=== PATIENT | female | born 1965 | race Caucasian/White ===

== ENCOUNTER → 2018-04-29 | Outpatient (CLI) | payer OTHER ==
--- NOTE | 2018-04-29 16:47 | Diagnostic Imaging Report ---
INDICATION: Shoulder pain. COMPARISON: None FINDINGS: Single axillary view of the left shoulder was obtained and demonstrates normal alignment of the glenoid and humeral head. No acute osseous abnormality is seen on this single view. No unexpected radiopaque foreign bodies are identified. IMPRESSION: 1. Single axillary view demonstrates normal glenohumeral alignment. Dictated by: Dictated on workstation # [id number]
== END ==
LOC: RAD 11:46
PROVIDERS: ATTEND Orthopaedic Surgery Sports Medicine
DX: M25.512 Pain in left shoulder (principal)
CPT/HCPCS: 73020

== ENCOUNTER → 2018-05-18 | Outpatient (CLI) | payer OTHER ==
--- NOTE | 2018-05-18 13:18 | Diagnostic Imaging Report ---
INDICATION: Postmenopausal screening. COMPARISON: None. FINDINGS: AP Spine L2-L4: [BMD (g/cm2): .936] [T-Score: -2.2] [Z-Score: -0.8] [BMD Previous: na] [BMD % Change: na] LT Hip Neck: [BMD (g/cm2): 0.755] [T-Score: -2.0] [Z-Score: -0.6] LT Hip Total: [BMD (g/cm2):0.761] [T-Score:-2.0] [Z-Score: -0.9] [BMD Previous: na] [BMD % Change: na] RT Hip Neck: [BMD (g/cm2):0.870] [T-Score:-1.2] [Z-Score:0.2] RT Hip Total: [BMD (g/cm2):0.833] [T-score:-1.4] [Z-Score:-0.3] [BMD Previous:na] [BMD % Change:na] *Indicates significant change from prior examination based on 95% confidence level. World Health Organization criteria for BMD interpretation classify patients as Normal (T-score at or above -1.0), Osteopenic (T-score between -1.0 and -2.5) or Osteoporotic (T-score at or below -2.5). LIMITATIONS AND MODIFICATION: None. FRACTURE RISK (FRAX SCORE): The ten year probability of (%): Major Osteoporotic Fracture: [7.0] Hip Fracture: [1.0] IMPRESSION: 1. Osteopenia (Low bone mass). 2. Baseline examination. 3. See below National Osteoporosis Foundation guidelines on when to potentially initiate pharmacologic therapy. Based on the National Osteoporosis Foundation Guidelines, pharmacologic treatment should be initiated in any of the following, unless clinical conditions suggest otherwise: * Any patient with prior fragility fracture of the hip or vertebrae. A spine fracture indicates 5X risk for subsequent spine fracture and 2X risk for subsequent hip fracture. * Osteoporosis (T-score <-2.5). * Postmenopausal women and men age 50 and older with low bone mass/osteopenia (T-score between -1.0 and -2.5) by DXA and 10-year major osteoporotic fracture greater than 20% or a 10-year probability of hip fracture greater than 3%. These fracture risks are supplied above in the FRAX score, if applicable. * Clinician judgment and/or patient preferences may indicate treatment for people with 10-year fracture probabilities above or below these levels. Dictated by: Dictated on workstation # [id number]
== END ==
LOC: RAD 08:07
PROVIDERS: ATTEND Family Medicine
DX: Z13.820 Encounter for screening for osteoporosis (principal); M85.89 Other specified disorders of bone density and structure, multiple sites; Z78.0 Asymptomatic menopausal state
CPT/HCPCS: 77080

== ENCOUNTER → 2019-01-03 | Outpatient (CLI) | payer SELFPAY ==
--- NOTE | 2019-01-03 15:09 | Diagnostic Imaging Report ---
PROCEDURE: US Non-ob pelvis comp/trans. TECHNIQUE: Multiple realtime grayscale images were obtained of the pelvis in various projections endovaginally. Transabdominal imaging was also performed. INDICATION: Adnexal fullness and pelvic pain. FINDINGS: Uterus measures 5.2 x 3.4 x 2.5 cm. Endometrium is 3 mm in thickness. No myometrial mass is identified. Left ovary cannot be visualized due to overlying bowel gas. Right ovary measures 2.0 x 1.6 x 0.9 cm. There is blood flow to the right ovary. No mass or free fluid is seen. IMPRESSION: Nonvisualized left ovary. The study is otherwise unremarkable. Dictated by: Dictated on workstation # [id number]
== END ==
LOC: RAD 12:41
PROVIDERS: ATTEND Obstetrics & Gynecology
DX: N94.89 Other specified conditions associated with female genital organs and menstrual cycle (principal); R10.2 Pelvic and perineal pain
CPT/HCPCS: 76830; 76856

== ENCOUNTER 2020-11-04 13:21 | Emergency (ER) | payer OTHER ==
[~2020-11-04] VITALS: Ht 160 cm; Wt 46.0 kg
--- NOTE | 2020-11-04 13:50 | ED Back Pain ---
General Chief Complaint: Back Problems Stated Complaint: LOW BACK PAIN,PREV LIGHTHEADED/NAUSEA Nursing Triage Note: PT CO OF BACK PAIN, TO ROOM 3 PER W/C PT STATES WAS MOVING BED AND FELT POP IN LOWER BACK RATES PAIN 12/02 Source of Information: Patient History of Present Illness Date Seen by Provider: Nov 04, 2020 Time Seen by Provider: 13:35 Initial Comments PT ARRIVES VIA POV FROM HOME, WHEELCHAIR ON ARRIVAL PT STATES ABOUT AN HOUR AGO, SHE WAS AT HER MOM'S HOUSE AND WAS MOVING A BED, AND FELT SOMETHING "POP" IN HER LOWER BACK AND HAD SUDDEN SEVERE PAIN IN LOW BACK NO RADIATION OF PAIN NO PARESTHESIAS OR MOTOR DEFICITS NO LOSS OF BOWEL OR BLADDER FUNCTION--URINATED NORMALLY JUST PRIOR TO ARRIVAL NO HISTORY OF BACK PROBLEMS HAS NOT TAKEN ANYTHING FOR PAIN STATES "I CAN'T TAKE ANYTHING" "THEY CAN'T EVEN TREAT MY FIBROMYALGIA BECAUSE I CAN'T TAKE ANYTHING" --GIVES A LONG LIST OF MEDICATIONS SHE CANNOT TAKE DUE TO VARIOUS ADVERSE REACTIONS/INTOLERANCES ALSO STATES SHE HAS OSTEOPOROSIS Other Comments PCP: DR. RENE Allergies and Home Medications Patient Home Medication List Home Medication List Reviewed: Yes Review of Systems Constitutional: no symptoms reported Gastrointestinal: no symptoms reported Genitourinary: no symptoms reported Control/STD Prophylaxis: Other (MENOPAUSAL) Musculoskeletal: see HPI, back pain Skin: no symptoms reported Psychiatric/Neurological: No Symptoms Reported Past Lckbgic-Sgxzzx-Croiwj Hx Patient Social History Tobacco Use?: Yes Tobacco type used: Cigarettes Smoking Status: Former Smoker (SMOKED X 7 YEARS, QUIT MANY YEARS AGO) Substance use?: No Alcohol Use?: No Pt feels they are or have been: No Immunizations Up To Date First/Initial COVID19 Vaccinat: J AND J 05/19/20 Seasonal Allergies Seasonal Allergies: Yes Past Medical History Surgeries: Yes Tubal Ligation Respiratory: No Cardiac: No Neurological: No CONVEYOR MONITOR History: Menopausal Genitourinary: No Gastrointestinal: Yes Diverticulosis Musculoskeletal: Yes Osteoporosis, Fibromyalgia Endocrine: No HEENT: No Cancer: No Psychosocial: No Integumentary: No Blood Disorders: No Physical Exam Vital Signs Vital Signs - First Documented 11/04/20 13:30 Temp 36.0 Pulse 58 Resp 18 B/P (MAP) 132/75 (94) Pulse Ox 100 Capillary Refill : Less Than 3 Seconds Height, Weight, BMI Height: '" Weight: lbs. oz. kg; 17.00 BMI Method: General Appearance: No Apparent Distress, WD/WN, Anxious, Thin Neck: Normal Inspection Cardiovascular: Regular Rate, Rhythm, No Edema, No JVD, No Murmur, Normal Peripheral Pulses Respiratory: Normal Breath Sounds Peripheral Pulses: 2+ Dorsalis Pedis (R), 2+ Left Dors-Pedis (L) Gastrointestinal: Non Tender, Soft Back: No CVA Tenderness, Other (DIFFUSE LUMBAR TENDERNESS--EXAGGERATED PAIN RESPONSE, C/O SEVERE PAIN WITH ANY MOVEMENT. DTR'S INTACT. MOTOR/SENSORY/VASCULAR INTACT. ) Extremity: Normal Capillary Refill, Normal Inspection, Normal Range of Motion, Non Tender, No Calf Tenderness, No Pedal Edema Neurologic/Psychiatric: Alert, Oriented x3, No Motor/Sensory Deficits, wound care nurse II- XII Norm as Tested Skin: Normal Color, Warm/Dry; No Rash Progress/Results/Core Measures Results/Orders My Orders Orders - BETH MITCHELL DO Ct Lumbar Spine Wo (11/04/20 13:42) Vital Signs/I&O 11/04/20 13:30 Temp 36.0 Pulse 58 Resp 18 B/P (MAP) 132/75 (94) Pulse Ox 100 Blood Pressure Mean: 94 Progress Progress Note : Progress Note OFFERED A MULTITUDE PAIN MEDICATIONS, MUSCLE RELAXANTS, STEROIDS--PT REPEATEDLY STATES "I CAN'T TAKE ANYTHING" --GIVES VAGUE REASONS WHY SHE CAN'T TAKE THEM, STATING "I CAN'T TAKE THAT"--TO LITERALLY EVERY MEDICATION OF MULTIPLE DRUG CLASSES THAT I SUGGESTED, WILL OCCASIONALLY STATE "IT MAKES ME SICK", OR STATES TO A FEW "I SWELL" SHE REPEATS THAT THE ONLY MEDICATIONS SHE CAN TAKE ARE OVER THE COUNTER MEDICATIONS PT LATER STATES SHE DOES TAKE 1 ADVIL TWICE A DAY--ADVISED HER AT THIS TIME, TO HOLD NSAIDS THEY CAN SLOW HEALING OF FRACTURES DISCUSSED THE POSSIBILITY OF KYPHOPLASTY FOR PAIN MANAGEMENT/RASTAFARIAN OF VERTEBRAL HEIGHT, ETC. AND THE IMPORTANCE OF FOLLOW UP WITH ORTHOPEDIC SURGEON. 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 ALSO DISCUSSED WITH HER THAT SHE MAY BE A CANDIDATE FOR MEDICATIONS TO TREAT OSTEOPOROSIS--TO WHICH PT STATES "I CAN'T TAKE ANY OF THEM BECAUSE I HAVE DIVERTICULITIS" Diagnostic Imaging Comments CT LUMBAR SPINE--PER RADIOLOGIST REPORT AT 1407 Discussion: There is likely an acute endplate fracture along the superior aspect of the L5 vertebral body. No retropulsion. This could be confirmed with noncontrast MRI and subsequently treated with kyphoplasty as clinically indicated. Mild degenerative disc disease is noted. Mild facet arthropathy. No severe neural foraminal narrowing. Small disc bulges are noted throughout. The paraspinal soft tissues are unremarkable. Sacroiliac joints are unremarkable. Impression: 1. Acute appearing L5 mild compression fracture. Reviewed: Reviewed by Me Departure Impression Primary Impression: ACUTE L5 COMPRESSION FRACTURE Disposition: HOME, SELF-CARE Condition: Stable Departure-Patient Inst. Decision time for Depature: 14:07 Referrals: BETH RENE MD (PCP/Family) Primary Care Physician NIA FORD MD, MICHAEL P MD Patient Instructions: Vertebral Compression Fracture (DC) Add. Discharge Instructions: ALTERNATE ICE AND HEAT TO AREA AT 20 MINUTE INTERVALS TYLENOL NEEDED FOR PAIN OVER THE COUNTER LIDOCAINE PATCH DAILY FOR PAIN FOLLOW UP WITH DR. YEBOAH OR DR. FORD THIS WEEK FOR FURTHER CARE All discharge instructions reviewed with patient and/or family. Voiced understanding. BETH MITCHELL DO Nov 04, 2020 13:50
--- NOTE | 2020-11-04 14:03 | Diagnostic Imaging Report ---
Procedure: CT lumbar spine without contrast. Technique: Multiple contiguous axial images were obtained through the lumbar spine without the use of intravenous contrast. Sagittal and coronal reformations were then performed. Auto Exposure Controls were utilized during the CT exam to meet ALARA standards for radiation dose reduction. Indication: Low back lifting injury with pain. Comparison: None. Discussion: There is likely an acute endplate fracture along the superior aspect of the L5 vertebral body. No retropulsion. This could be confirmed with noncontrast MRI and subsequently treated with kyphoplasty as clinically indicated. Mild degenerative disc disease is noted. Mild facet arthropathy. No severe neural foraminal narrowing. Small disc bulges are noted throughout. The paraspinal soft tissues are unremarkable. Sacroiliac joints are unremarkable. Impression: 1. Acute appearing L5 mild compression fracture. Dictated by: Dictated on workstation # [id number]
[2020-11-04 14:34] VITALS: BP 132/75
== END 2020-11-04 14:34 | disposition home or self-care (01) ==
LOC: EDUNIT# 13:21 → ER 13:24
DX: S32.050A Wedge compression fracture of fifth lumbar vertebra, initial encounter for closed fracture (principal); Z87.891 Personal history of nicotine dependence; X50.0XXA Overexertion from strenuous movement or load, initial encounter
CPT/HCPCS: 72131

== ENCOUNTER → 2021-01-09 | Outpatient (CLI) | payer OTHER ==
[~2021-01-09] MED LIST: GADOTERATE 0.5 MMOL/ML (CLARISCAN) 15 ML VIAL IV ONE
--- NOTE | 2021-01-09 16:54 | Diagnostic Imaging Report ---
INDICATION: Patient with neck pain with numbness to both arms. EXAM: MRI of the cervical spine performed without IV contrast. Sequences include sagittal T2, sagittal T1, sagittal T2 fat-sat, axial T2, and axial T1. COMPARISON: None. FINDINGS: There is no acute cervical spine fracture or dislocation. There is no marrow edema. Limited visualization of the posterior fossa is unremarkable. Cervical spinal cord has normal cord caliber with no abnormal signal. There is no significant paraspinal soft tissue abnormality. C1-C2: There is no significant central canal narrowing. C2-C3: There is a very subtle posterior disk bulge. Otherwise, this level is unremarkable. C4-C5: There is mild bilateral facet arthropathy. There are small focal annular tears anteriorly and posteriorly with no significant disk bulge. There is mild bilateral facet arthropathy. There is no significant central spinal canal or neural foramen narrowing. C5-C6: There is minimal apical ligamentum flavum buckling. There is moderate right facet arthropathy and mild left facet arthropathy. There is mild central canal narrowing. There is no significant neural foramen narrowing. C6-C7: There is mild right facet arthropathy. There is no significant disk bulge. There is no significant central spinal canal or neural foramen narrowing. C7-T1: Unremarkable. IMPRESSION: There is mild cervical spine degenerative disk disease with no significant central canal or neural foramen narrowing. Dictated by: Dictated on workstation # [id number]
--- NOTE | 2021-01-09 17:07 | Diagnostic Imaging Report ---
PROCEDURE: MRI lumbar spine with and without contrast. TECHNIQUE: Multiplanar, multisequence MRI of the lumbar spine was performed with and without contrast. INDICATION: Back pain. L5 compression fracture. COMPARISON: 11/04/2020. FINDINGS: 5 lumbar type vertebral bodies are visualized with the last well-formed disc space designated L5-S1. Subacute to chronic compression fracture is seen in the superior endplate of L5 with stable height loss of approximately 25%. There is fragmentation of the anterior superior aspect of the L5 vertebral body which is similar in appearance to the prior exam. No acute fracture or dislocation is seen in the lumbar spine. Alignment is anatomic. No suspicious focal osseous lesions are seen. No abnormal enhancement is seen within the lumbar spine. The conus terminates at the L1 level. No masses are seen associated with the conus or nerve roots of the cauda equina. No epidural collections are identified. Multilevel degenerative changes are seen in the lumbar spine with disc bulges, facet hypertrophy, and buckling of the ligamentum flavum. T12-L1: No significant spinal canal or foraminal stenosis. L1-L2: No significant spinal canal or foraminal stenosis. L2-L3: No significant spinal canal or foraminal stenosis. L3-L4: No significant spinal canal or foraminal stenosis. L4-L5: Broad-based disc bulge, facet hypertrophy, and buckling of the ligamentum flavum results in mild spinal canal narrowing with mild bilateral foraminal narrowing. L5-S1: Facet hypertrophy and buckling of the ligamentum flavum results in no significant spinal canal narrowing and no significant foraminal narrowing. Paravertebral soft tissues are unremarkable. IMPRESSION: 1. Subacute to chronic compression fracture in the superior endplate of L5. There is stable height loss. No bony retropulsion. 2. No acute fracture or dislocation in the lumbar spine. No abnormal enhancement. 3. Multilevel degenerative changes in the lumbar spine, greatest at L4-L5. Dictated by: Dictated on workstation # [id number]
== END ==
LOC: RAD 14:00
PROVIDERS: ATTEND Pediatrics
DX: S32.050D Wedge compression fracture of fifth lumbar vertebra, subsequent encounter for fracture with routine healing (principal); M47.816 Spondylosis without myelopathy or radiculopathy, lumbar region; M50.30 Other cervical disc degeneration, unspecified cervical region; X58.XXXD Exposure to other specified factors, subsequent encounter
CPT/HCPCS: 72156; 72158

== ENCOUNTER → 2021-09-25 | Outpatient (CLI) | payer OTHER ==
[~2021-09-25] MED LIST changes: +CATHETER FLUSH 10 ML SYR IV PRN; -GADOTERATE 0.5 MMOL/ML (CLARISCAN) 15 ML VIAL IV ONE; +HOLD METFORMIN - RECEIVED CONTRAST 20 ML VIAL IV SCH; +IOHEXOL 350 MG/ML 100 ML (OMNIPAQUE 350) VIAL IV ONE; +NS 100 ML (IVPB) BAG IV ONE
--- NOTE | 2021-09-25 15:39 | Diagnostic Imaging Report ---
PROCEDURE: CT abdomen and pelvis with contrast. TECHNIQUE: Multiple contiguous axial images were obtained through the abdomen and pelvis after administration of intravenous contrast. Auto Exposure Controls were utilized during the CT exam to meet ALARA standards for radiation dose reduction. All CT scans use one or more of the following dose optimizing techniques: automated exposure control, MA and/or KvP adjustment based on patient size and exam type or iterative reconstruction. INDICATION: Left lower quadrant abdominal pain. COMPARISON: No prior studies are available for comparison. FINDINGS: The lung bases are clear. No discrete liver mass is detected. The gallbladder is contracted. No biliary ductal dilatation is seen. The pancreas and spleen are unremarkable. No adrenal mass is detected. The kidneys are unremarkable. There is no hydronephrosis. No calculi are seen. The aorta is nonaneurysmal. The small and large bowel loops are of normal caliber. There is no obstruction. There is diverticulosis of the sigmoid but no evidence of acute diverticulitis. There is no free fluid or fluid collection. The uterus and bladder are unremarkable. No inflammatory changes are seen. IMPRESSION: Uncomplicated diverticulosis. The study is otherwise unremarkable. No acute feature is detected. Dictated by: Dictated on workstation # [id number]
== END ==
LOC: RAD 14:15
PROVIDERS: ATTEND Surgery
DX: K57.90 Diverticulosis of intestine, part unspecified, without perforation or abscess without bleeding (principal)
CPT/HCPCS: 74177